=== PATIENT | female | born 1965 | race Two or more races ===

== ENCOUNTER 2017-08-23 15:59 | Emergency (ER) | payer SELFPAY ==
[~2017-08-23] VITALS: Ht 165.1 cm; Wt 74.4 kg
[2017-08-23 18:33] VITALS: BP 129/79
== END 2017-08-24 00:21 | disposition home or self-care (01) ==
LOC: ER 16:10
DX: M79.605 Pain in left leg (principal)
CPT/HCPCS: 93971

== ENCOUNTER 2019-05-23 10:20 | Emergency (ER) | payer MEDICAID, OTHER ==
[~2019-05-23] VITALS: Ht 165.1 cm; Wt 74.4 kg
[2019-05-23 11:39] VITALS: BP 161/85
[2019-05-23] MEDS ORDERED: IBUPROFEN 800 MG TAB PO ONE (12:30)
== END 2019-05-23 13:38 | disposition home or self-care (01) ==
LOC: ER 10:20
DX: I83.92 Asymptomatic varicose veins of left lower extremity (principal)
CPT/HCPCS: 93971